=== PATIENT | male | born 1940 | race African-American/Black ===

== ENCOUNTER 2016-05-27 12:07 | Emergency (ER) | payer MEDICARE, MEDICAID ==
[~2016-05-27] VITALS: Ht 170.2 cm; Wt 71.4 kg
[~2016-05-27 12:07] MED LIST: AMLO1CAP6 PO; ASPI-825 PO; DEXT15SY3 PO; FLUC100T PO; LECI12002 PO; MULT-71 PO; OMEG100T PO; PANT40TA25 PO; SAW80CAP2 PO; [UNRECOGNIZED DRUG - OTHER] PO
[2016-05-27 13:52] VITALS: BP 135/70
== END 2016-05-27 13:53 | disposition home or self-care (01) ==
LOC: EMS 12:09
DX: K21.9 Gastro-esophageal reflux disease without esophagitis (principal); H92.02 Otalgia, left ear; I10 Essential (primary) hypertension; Z79.82 Long term (current) use of aspirin
CPT/HCPCS: 99282

== ENCOUNTER → 2017-01-05 | Outpatient (CLI) | payer OTHER, MEDICAID ==
[~2017-01-05] MED LIST changes: -DEXT15SY3 PO; -FLUC100T PO; -LECI12002 PO; -MULT-71 PO; -OMEG100T PO; -PANT40TA25 PO; -SAW80CAP2 PO; -[UNRECOGNIZED DRUG - OTHER] PO
== END | disposition home or self-care (01) ==
LOC: RADPV 08:50
PROVIDERS: ATTEND Internal Medicine Cardiovascular Disease
DX: I08.0 Rheumatic disorders of both mitral and aortic valves (principal)
CPT/HCPCS: 93306

== ENCOUNTER 2017-08-24 05:31 | Emergency (ER) | payer MEDICARE, MEDICAID ==
[~2017-08-24] VITALS: Ht 170.2 cm; Wt 71.4 kg
[2017-08-24] MEDS ORDERED: TRAM50TA4 PO (05:46)
[2017-08-24] MEDS ORDERED: IBUP-2070 PO (05:46)
[2017-08-24] MEDS ORDERED: CYCL10 PO (05:46)
[2017-08-24] MEDS ORDERED: KETOROLAC TROMETHAMINE 30 MG/ML VIAL IM ONE (06:30)
[2017-08-24] MEDS ORDERED: LIDOCAINE HCL 5% TRANSDERMAL PATCH TD ONE (06:30)
[2017-08-24 07:12] VITALS: BP 133/77
== END 2017-08-24 07:19 | disposition home or self-care (01) ==
LOC: EMS 05:31
DX: M54.2 Cervicalgia (principal); M25.512 Pain in left shoulder; K21.9 Gastro-esophageal reflux disease without esophagitis; I10 Essential (primary) hypertension; G89.29 Other chronic pain
CPT/HCPCS: 96372; 99283; J1885

== ENCOUNTER 2018-08-25 07:44 | Emergency (ER) | payer MEDICARE, MEDICAID ==
[~2018-08-25] VITALS: Ht 172.7 cm; Wt 75.0 kg
[~2018-08-25 07:44] MED LIST changes: -ASPI-825 PO; +CYCL10 PO; +IBUP-2070 PO; +TRAM50TA4 PO
[2018-08-25 09:05] LABS: BASOPHILS % (AUTO) 0.3 % (0.0-2.0); EOSINOPHILS % (AUTO) 0.4 % (1.0-6.0); HEMATOCRIT 47.7 % (41-53); MEAN CORPUSCULAR HEMOGLOBIN 32.9 pg (26.0-34.0); MEAN CORPUSCULAR HGB CONC 33.6 G/dL (31.0-37.0); MEAN CORPUSCULAR VOLUME 98 fL (80-100); MONOCYTES # (AUTO) 0.5 K/uL (0.1-1.0); MONOCYTES % (AUTO) 9.4 % (2.0-9.0); NEUTROPHILS # (AUTO) 4.1 K/uL (1.8-7.7); NEUTROPHILS % (AUTO) 71.9 % (40.0-70.0); PLATELET COUNT (AUTO) 181 K/uL (150-450); RED BLOOD CELL COUNT(AUTO) 4.87 MIL/uL (4.50-5.90); RED CELL DISTRIBUTION WIDTH 13.8 % (11.5-14.5)
[2018-08-25 09:05] LABS: APPEARANCE,URINE CLEAR (CLEAR); BILIRUBIN,URINE NEGATIVE (NEGATIVE); GLUCOSE, URINE (UA) NEGATIVE (NEGATIVE); KETONES,URINE NEGATIVE (NEGATIVE); LEUKOCYTE ESTERASE ,URINE NEGATIVE (NEGATIVE); NITRATE,URINE NEGATIVE (NEGATIVE); OCCULT BLOOD,URINE NEGATIVE (NEGATIVE); PH,URINE 7.5 (5.0-8.0); PROTEIN,URINE NEGATIVE (NEGATIVE); UROBILINOGEN,URINE 0.2 mg/dL (<=1.0)
[2018-08-25 09:11] LABS: ANION GAP 7 mmol/L (8-16); CALCIUM, TOTAL 10.2 mg/dL (8.8-10.5); CARBON DIOXIDE 28 mmol/L (22-29); CHLORIDE 104 mmol/L (98-107); CREATININE 1.04 mg/dL (0.60-1.30); GLOMERULAR FILTR. RATE CALC > 60 mL/min (>60); GLUCOSE,RANDOM 95 mg/dL (70-110); POTASSIUM 4.9 mmol/L (3.5-5.1); SODIUM SERUM 139 mmol/L (136-145); UREA NITROGEN, BLOOD 12 mg/dL (7-18)
[2018-08-25 09:16] LABS: ALANINE AMINOTRANSFERASE 29 U/L (12-78); ALBUMIN 4.2 g/dL (3.4-5.0); ALKALINE PHOSPHATASE 84 U/L (46-116); ASPARTATE AMINOTRANSFERASE 17 U/L (15-37); BILIRUBIN,TOTAL 0.9 mg/dL (0.1-1.0); LIPASE 83 U/L (73-393); TOTAL PROTEIN, SERUM 7.4 g/dL (6.4-8.2)
[2018-08-25 09:20] LABS: BACTERIA,URINE None Seen /HPF (None Seen); RBC,URINE None Seen /HPF (0-2); SQUAMOUS EPITHELIAL CELL,UR None Seen /LPF (None Seen); WBC,URINE None Seen /HPF (0-5)
[2018-08-25 09:27] LABS: B-TYPE NATRIURETIC PEPTIDE 27 pg/mL (0-100)
[2018-08-25] MEDS ORDERED: FAMOTIDINE 20 MG TABLET PO ONE (10:30)
[2018-08-25] MEDS ORDERED: ACETAMINOPHEN 500 MG TABLET PO ONE (10:30)
[2018-08-25] MEDS ORDERED: PANTOPRAZOLE SODIUM 40 MG DR TABLET PO ONE (10:30)
[2018-08-25] MEDS ORDERED: MAG HYDROX/AL HYDROX/SIMETH ES 30 ML SUSPENSION UDCUP PO ONE (10:30)
[2018-08-25 13:10] VITALS: BP 126/64
== END 2018-08-25 13:05 | disposition home or self-care (01) ==
LOC: EMS 07:46
DX: R07.89 Other chest pain (principal); I10 Essential (primary) hypertension; K21.9 Gastro-esophageal reflux disease without esophagitis; Z79.899 Other long term (current) drug therapy
CPT/HCPCS: 36415; 71045; 80053; 81001; 83690; 83880; 84484; 85025; 93005; 99285; G0480

== ENCOUNTER 2020-01-13 04:20 | Emergency (ER) | payer MEDICAID, MEDICARE ==
[~2020-01-13] VITALS: Ht 170.2 cm; Wt 69.5 kg
[2020-01-13 05:00] LABS: BASOPHILS % (AUTO) 0.6 % (0.0-2.0); EOSINOPHILS % (AUTO) 0.7 % (1.0-6.0); HEMATOCRIT 48.3 % (41-53); HEMOGLOBIN 16.5 g/dL (13.5-17.5); LYMPHOCYTES # (AUTO) 1.2 K/uL (1.0-4.8); MEAN CORPUSCULAR HEMOGLOBIN 33.4 pg (26.0-34.0); MEAN CORPUSCULAR HGB CONC 34.2 G/dL (31.0-37.0); MEAN CORPUSCULAR VOLUME 98 fL (80-100); MONOCYTES # (AUTO) 0.4 K/uL (0.1-1.0); MONOCYTES % (AUTO) 9.3 % (2.0-9.0); NEUTROPHILS # (AUTO) 3.1 K/uL (1.8-7.7); NEUTROPHILS % (AUTO) 64.4 % (40.0-70.0); PLATELET COUNT (AUTO) 185 K/uL (150-450); RED BLOOD CELL COUNT(AUTO) 4.95 MIL/uL (4.50-5.90); RED CELL DISTRIBUTION WIDTH 13.4 % (11.5-14.5)
[2020-01-13 05:09] LABS: ANION GAP 7 mmol/L (8-16); CALCIUM, TOTAL 9.4 mg/dL (8.8-10.5); CARBON DIOXIDE 32 mmol/L (22-29); CHLORIDE 104 mmol/L (98-107); CREATININE 0.89 mg/dL (0.60-1.30); GLOMERULAR FILTR. RATE CALC > 60 mL/min (>60); GLUCOSE,RANDOM 106 mg/dL (70-110); POTASSIUM 4.5 mmol/L (3.5-5.1); SODIUM SERUM 143 mmol/L (136-145); UREA NITROGEN, BLOOD 10 mg/dL (7-18)
[2020-01-13 05:17] LABS: ALANINE AMINOTRANSFERASE 26 U/L (12-78); ALKALINE PHOSPHATASE 75 U/L (46-116); ASPARTATE AMINOTRANSFERASE 20 U/L (15-37); BILIRUBIN,TOTAL 0.6 mg/dL (0.1-1.0); TOTAL PROTEIN, SERUM 7.9 g/dL (6.4-8.2)
[2020-01-13] MEDS ORDERED: PB/HYOSCY/ATR/SCOP/LIDO/MAALOX 55 ML BOTTLE PO ONE (06:15)
[2020-01-13] MEDS ORDERED: FAMOTIDINE 10 MG/ML 2 ML VIAL IVP ONE (06:15)
[2020-01-13 09:09] VITALS: BP 121/74
== END 2020-01-13 09:10 | disposition home or self-care (01) ==
LOC: EMS 04:21
DX: R07.89 Other chest pain (principal); R12 Heartburn; R20.8 Other disturbances of skin sensation; K21.9 Gastro-esophageal reflux disease without esophagitis; I10 Essential (primary) hypertension
CPT/HCPCS: 36415; 71045; 80053; 84484; 85025; 93005; 96374; 99285; J3490

== ENCOUNTER → 2020-07-17 | Outpatient (CLI) | payer MEDICARE ==
[~2020-07-17] MED LIST changes: -CYCL10 PO; -IBUP-2070 PO; -TRAM50TA4 PO
== END | disposition home or self-care (01) ==
LOC: RADPV 09:11
PROVIDERS: ATTEND Internal Medicine Cardiovascular Disease
DX: I35.1 Nonrheumatic aortic (valve) insufficiency (principal)
CPT/HCPCS: 93306

== ENCOUNTER 2020-09-06 01:25 | Emergency (ER) | payer MEDICARE ==
[~2020-09-06] VITALS: Ht 170.2 cm; Wt 79.1 kg
[2020-09-06 01:45] LABS: BASOPHILS % (AUTO) 0.8 % (0.0-2.0); HEMATOCRIT 46.3 % (41-53); HEMOGLOBIN 15.7 g/dL (13.5-17.5); LYMPHOCYTES # (AUTO) 1.6 K/uL (1.0-4.8); LYMPHOCYTES % (AUTO) 40.4 % (22.0-44.0); MEAN CORPUSCULAR HEMOGLOBIN 32.6 pg (26.0-34.0); MEAN CORPUSCULAR VOLUME 96 fL (80-100); MONOCYTES # (AUTO) 0.4 K/uL (0.1-1.0); MONOCYTES % (AUTO) 9.8 % (2.0-9.0); NEUTROPHILS # (AUTO) 1.9 K/uL (1.8-7.7); PLATELET COUNT (AUTO) 162 K/uL (150-450); RED BLOOD CELL COUNT(AUTO) 4.83 MIL/uL (4.50-5.90); RED CELL DISTRIBUTION WIDTH 13.4 % (11.5-14.5)
[2020-09-06 01:53] LABS: ANION GAP 8 mmol/L (8-16); CALCIUM, TOTAL 9.1 mg/dL (8.8-10.5); CARBON DIOXIDE 27 mmol/L (22-29); CHLORIDE 105 mmol/L (98-107); CREATININE 0.98 mg/dL (0.60-1.30); GLUCOSE,RANDOM 104 mg/dL (70-110); POTASSIUM 4.4 mmol/L (3.5-5.1); SODIUM SERUM 140 mmol/L (136-145); UREA NITROGEN, BLOOD 12 mg/dL (7-18)
[2020-09-06 02:01] LABS: PROTHROMBIN TIME 10.8 SEC (9.4-11.6)
[2020-09-06 02:04] LABS: GLOMERULAR FILTR. RATE CALC > 60 mL/min (>60)
[2020-09-06 02:07] LABS: B-TYPE NATRIURETIC PEPTIDE 22 pg/mL (0-100)
[2020-09-06 02:18] LABS: ALANINE AMINOTRANSFERASE 31 U/L (12-78); ALKALINE PHOSPHATASE 96 U/L (46-116); ASPARTATE AMINOTRANSFERASE 21 U/L (15-37); BILIRUBIN,TOTAL 0.6 mg/dL (0.1-1.0); CREATINE KINASE, TOTAL ONLY 121 U/L (39-308); TOTAL PROTEIN, SERUM 7.5 g/dL (6.4-8.2)
[2020-09-06 03:34] LABS: FREE T4 (FREE THYROXINE) 0.99 ng/dL (0.76-1.46); THYROID STIMULATING HORMONE 1.08 uIU/mL (0.36-3.74)
[2020-09-06 04:00] VITALS: BP 133/66
== END 2020-09-06 04:58 | disposition home or self-care (01) ==
LOC: EMS 01:28
DX: R07.89 Other chest pain (principal); R00.2 Palpitations
CPT/HCPCS: 71045; 80053; 82550; 83880; 84439; 84443; 84484; 85025; 85610; 85730; 93005; 99285; 36415-L1; 36415-TC

== ENCOUNTER 2021-04-10 23:57 | Inpatient (IN) | payer MEDICARE ==
[~2021-04-10] VITALS: Ht 170.2 cm; Wt 69.9 kg
[2021-04-11 00:56] LABS: BASOPHILS % (AUTO) 0.5 % (0.0-2.0); EOSINOPHILS % (AUTO) 1.3 % (1.0-6.0); HEMATOCRIT 47.1 % (41-53); HEMOGLOBIN 16.1 g/dL (13.5-17.5); LYMPHOCYTES # (AUTO) 1.4 K/uL (1.0-4.8); LYMPHOCYTES % (AUTO) 35.5 % (22.0-44.0); MEAN CORPUSCULAR HEMOGLOBIN 32.7 pg (26.0-34.0); MEAN CORPUSCULAR HGB CONC 34.2 G/dL (31.0-37.0); MEAN CORPUSCULAR VOLUME 95 fL (80-100); MONOCYTES # (AUTO) 0.4 K/uL (0.1-1.0); MONOCYTES % (AUTO) 10.9 % (2.0-9.0); NEUTROPHILS # (AUTO) 2.1 K/uL (1.8-7.7); NEUTROPHILS % (AUTO) 51.8 % (40.0-70.0); PLATELET COUNT (AUTO) 165 K/uL (150-450); RED BLOOD CELL COUNT(AUTO) 4.94 MIL/uL (4.50-5.90); RED CELL DISTRIBUTION WIDTH 13.3 % (11.5-14.5)
[2021-04-11 01:03] LABS: ANION GAP 8 mmol/L (8-16); CALCIUM, TOTAL 9.4 mg/dL (8.8-10.5); CARBON DIOXIDE 27 mmol/L (22-29); CHLORIDE 104 mmol/L (98-107); CREATININE 0.85 mg/dL (0.60-1.30); GLUCOSE,RANDOM 108 mg/dL (70-110); POTASSIUM 4.2 mmol/L (3.5-5.1); SODIUM SERUM 139 mmol/L (136-145); UREA NITROGEN, BLOOD 8 mg/dL (7-18)
[2021-04-11 01:05] LABS: COVID AG,FIA SOURCE NASOPHARYNGEAL
[2021-04-11 01:08] LABS: GLOMERULAR FILTR. RATE CALC > 60 mL/min (>60)
[2021-04-11 01:19] LABS: B-TYPE NATRIURETIC PEPTIDE 143 pg/mL (0-100)
[2021-04-11 01:27] LABS: ALANINE AMINOTRANSFERASE 35 U/L (12-78); ALBUMIN 4.2 g/dL (3.4-5.0); ALKALINE PHOSPHATASE 86 U/L (46-116); ASPARTATE AMINOTRANSFERASE 30 U/L (15-37); BILIRUBIN,TOTAL 0.8 mg/dL (0.1-1.0); CREATINE KINASE, TOTAL ONLY 373 U/L (39-308); PHOSPHORUS 3.7 mg/dL (2.5-4.9); TOTAL PROTEIN, SERUM 7.8 g/dL (6.4-8.2)
[2021-04-11 02:01] LABS: APPEARANCE,URINE CLEAR (CLEAR); BILIRUBIN,URINE NEGATIVE (NEGATIVE); GLUCOSE, URINE (UA) NEGATIVE (NEGATIVE); KETONES,URINE NEGATIVE (NEGATIVE); LEUKOCYTE ESTERASE ,URINE NEGATIVE (NEGATIVE); NITRATE,URINE NEGATIVE (NEGATIVE); OCCULT BLOOD,URINE NEGATIVE (NEGATIVE); PROTEIN,URINE NEGATIVE (NEGATIVE); UROBILINOGEN,URINE 0.2 mg/dL (<=1.0)
[2021-04-11] MEDS ORDERED: ONDANSETRON HCL 4 MG/2 ML VIAL IVP PRN (04:30)
[2021-04-11] MEDS ORDERED: APIX5TAB PO (05:41)
[2021-04-11] MEDS ORDERED: ATROPINE SULFATE 0.1 MG/ML 10 ML SYRINGE IVP PRN (05:45)
[2021-04-11] MEDS: FUROSEMIDE 20 MG/2 ML VIAL IVP SCH (06:22)
[2021-04-11 06:29] VITALS: BP 143/73
[2021-04-11] MEDS ORDERED: HEPARIN SODIUM,PORCINE 5,000 UNITS/ML VIAL SQ SCH (08:00)
[2021-04-11 08:10] VITALS: BP 124/64
[2021-04-11] MEDS: APIXABAN 5 MG TABLET PO SCH ×2 (08:32→20:31)
[2021-04-11] MEDS: ASPIRIN 81 MG CHEWABLE TABLET PO SCH (08:32)
[2021-04-11 11:35] VITALS: BP 108/63
[2021-04-11] MEDS: ATORVASTATIN CALCIUM 20 MG TABLET PO SCH (12:05)
[2021-04-11 16:12] VITALS: BP 116/71
[2021-04-11 22:05] VITALS: BP 131/60
[2021-04-12 00:53] VITALS: BP 117/64
[2021-04-12 05:08] VITALS: BP 118/63
[2021-04-12 06:15] LABS: BASOPHILS % (AUTO) 0.3 % (0.0-2.0); EOSINOPHILS % (AUTO) 1.3 % (1.0-6.0); HEMATOCRIT 46.7 % (41-53); HEMOGLOBIN 15.7 g/dL (13.5-17.5); LYMPHOCYTES # (AUTO) 1.5 K/uL (1.0-4.8); LYMPHOCYTES % (AUTO) 34.1 % (22.0-44.0); MEAN CORPUSCULAR HEMOGLOBIN 32.4 pg (26.0-34.0); MEAN CORPUSCULAR HGB CONC 33.6 G/dL (31.0-37.0); MEAN CORPUSCULAR VOLUME 96 fL (80-100); MONOCYTES # (AUTO) 0.5 K/uL (0.1-1.0); NEUTROPHILS # (AUTO) 2.2 K/uL (1.8-7.7); NEUTROPHILS % (AUTO) 52.3 % (40.0-70.0); PLATELET COUNT (AUTO) 174 K/uL (150-450); RED BLOOD CELL COUNT(AUTO) 4.85 MIL/uL (4.50-5.90); RED CELL DISTRIBUTION WIDTH 13.2 % (11.5-14.5)
[2021-04-12 06:39] LABS: ALANINE AMINOTRANSFERASE 31 U/L (12-78); ALBUMIN 3.3 g/dL (3.4-5.0); ALKALINE PHOSPHATASE 64 U/L (46-116); ANION GAP 5 mmol/L (8-16); ASPARTATE AMINOTRANSFERASE 24 U/L (15-37); BILIRUBIN,TOTAL 0.9 mg/dL (0.1-1.0); CALCIUM, TOTAL 9.2 mg/dL (8.8-10.5); CARBON DIOXIDE 30 mmol/L (22-29); CHLORIDE 105 mmol/L (98-107); CREATININE 0.87 mg/dL (0.60-1.30); GLUCOSE,RANDOM 91 mg/dL (70-110); POTASSIUM 4.1 mmol/L (3.5-5.1); SODIUM SERUM 140 mmol/L (136-145); TOTAL PROTEIN, SERUM 6.2 g/dL (6.4-8.2); UREA NITROGEN, BLOOD 11 mg/dL (7-18)
[2021-04-12 06:44] LABS: GLOMERULAR FILTR. RATE CALC > 60 mL/min (>60)
[2021-04-12] MEDS: APIXABAN 5 MG TABLET PO SCH (08:33)
[2021-04-12] MEDS: ASPIRIN 81 MG CHEWABLE TABLET PO SCH (08:33)
[2021-04-12] MEDS: ATORVASTATIN CALCIUM 20 MG TABLET PO SCH (08:33)
[2021-04-12] MEDS: FUROSEMIDE 20 MG/2 ML VIAL IVP SCH (08:33)
[2021-04-12 09:48] VITALS: BP 131/53
[2021-04-12 21:01] VITALS: BP 133/72
[2021-04-13 01:44] VITALS: BP 119/65
[2021-04-13 04:00] VITALS: BP 131/55
[2021-04-13 07:29] LABS: BASOPHILS % (AUTO) 1.1 % (0.0-2.0); EOSINOPHILS % (AUTO) 1.2 % (1.0-6.0); HEMATOCRIT 48.3 % (41-53); HEMOGLOBIN 16.7 g/dL (13.5-17.5); LYMPHOCYTES # (AUTO) 1.2 K/uL (1.0-4.8); LYMPHOCYTES % (AUTO) 29.6 % (22.0-44.0); MEAN CORPUSCULAR HEMOGLOBIN 32.9 pg (26.0-34.0); MEAN CORPUSCULAR HGB CONC 34.5 G/dL (31.0-37.0); MEAN CORPUSCULAR VOLUME 95 fL (80-100); MONOCYTES # (AUTO) 0.4 K/uL (0.1-1.0); NEUTROPHILS # (AUTO) 2.4 K/uL (1.8-7.7); NEUTROPHILS % (AUTO) 58.1 % (40.0-70.0); PLATELET COUNT (AUTO) 167 K/uL (150-450); RED BLOOD CELL COUNT(AUTO) 5.06 MIL/uL (4.50-5.90); RED CELL DISTRIBUTION WIDTH 13.3 % (11.5-14.5)
[2021-04-13 07:54] VITALS: BP 153/82
[2021-04-13 08:14] LABS: ALANINE AMINOTRANSFERASE 39 U/L (12-78); ALBUMIN 3.5 g/dL (3.4-5.0); ALKALINE PHOSPHATASE 74 U/L (46-116); ANION GAP 11 mmol/L (8-16); ASPARTATE AMINOTRANSFERASE 32 U/L (15-37); BILIRUBIN,TOTAL 0.8 mg/dL (0.1-1.0); CALCIUM, TOTAL 9.1 mg/dL (8.8-10.5); CARBON DIOXIDE 28 mmol/L (22-29); CHLORIDE 103 mmol/L (98-107); CREATININE 0.91 mg/dL (0.60-1.30); GLOMERULAR FILTR. RATE CALC > 60 mL/min (>60); GLUCOSE,RANDOM 100 mg/dL (70-110); POTASSIUM 4.1 mmol/L (3.5-5.1); SODIUM SERUM 142 mmol/L (136-145); TOTAL PROTEIN, SERUM 6.8 g/dL (6.4-8.2); UREA NITROGEN, BLOOD 13 mg/dL (7-18)
[2021-04-13] MEDS: ATORVASTATIN CALCIUM 20 MG TABLET PO SCH (08:33)
[2021-04-13] MEDS: FUROSEMIDE 20 MG/2 ML VIAL IVP SCH (08:33)
[2021-04-13] MEDS: ASPIRIN 81 MG CHEWABLE TABLET PO SCH (08:33)
[2021-04-13 11:47] VITALS: BP 142/68
[2021-04-13 15:17] VITALS: BP 127/79
[2021-04-13 20:07] VITALS: BP 130/56
[2021-04-13] MEDS: ACETAMINOPHEN 325 MG TABLET PO PRN (20:26)
[2021-04-14] VITALS (18 sets, daily range): BP systolic 100–180; BP diastolic 45–94
[2021-04-14] MEDS: ATORVASTATIN CALCIUM 20 MG TABLET PO SCH (07:49)
[2021-04-14] MEDS: ASPIRIN 81 MG CHEWABLE TABLET PO SCH (07:52)
[2021-04-14] MEDS: FUROSEMIDE 20 MG/2 ML VIAL IVP SCH (08:27)
[2021-04-14] MEDS ORDERED: LIDOCAINE/PF 1% 30 ML VIAL ONE (08:27)
[2021-04-14] MEDS ORDERED: SODIUM BICARBONATE 50 MEQ/50 ML VIAL ONE (08:27)
[2021-04-14] MEDS ORDERED: FentaNYL CITRATE PF 100 MCG/2 ML VIAL ONE (09:05)
[2021-04-14] MEDS ORDERED: MIDAZOLAM HCL 2 MG/2 ML VIAL ONE (09:06)
[2021-04-14] MEDS ORDERED: IOHEXOL 300 MG/ML 50 ML VIAL ONE (09:06)
[2021-04-14] MEDS ORDERED: SODIUM CHLORIDE 0.9% 500 ML IV ONE (09:45)
[2021-04-14] MEDS ORDERED: IOHEXOL 300 MG/ML 50 ML VIAL IVP ONE (09:45)
[2021-04-14] MEDS ORDERED: LIDOCAINE 1% 30 ML/SOD BICARB 8.4% 4 ML SQ ONE (09:45)
[2021-04-14] MEDS: CeFAZolin 1 GM/DEXTROSE 50 ML IV SCH ×2 (15:47→20:51)
[2021-04-14] MEDS: APIXABAN 5 MG TABLET PO SCH (20:50)
[2021-04-14] MEDS: ACETAMINOPHEN 325 MG TABLET PO PRN (20:50)
[2021-04-15 00:20] VITALS: BP 131/70
[2021-04-15] MEDS: CeFAZolin 1 GM/DEXTROSE 50 ML IV SCH (03:37)
[2021-04-15 04:15] VITALS: BP 122/69
[2021-04-15 07:27] VITALS: BP 139/66
[2021-04-15 07:53] LABS: CHOL/HDL RATIO 2.3 (4.2-7.3); MAGNESIUM 2.4 mg/dL (1.80-2.40); THYROID STIMULATING HORMONE 1.02 uIU/mL (0.36-3.74)
[2021-04-15] MEDS: FUROSEMIDE 20 MG/2 ML VIAL IVP SCH (09:41)
[2021-04-15] MEDS: ATORVASTATIN CALCIUM 20 MG TABLET PO SCH (09:41)
[2021-04-15] MEDS: APIXABAN 5 MG TABLET PO SCH (09:41)
[2021-04-15] MEDS: ASPIRIN 81 MG CHEWABLE TABLET PO SCH (09:42)
[2021-04-15 11:27] VITALS: BP 145/66
[2021-04-15] MEDS ORDERED: ATOR20TA86 PO (11:45)
[2021-04-15] MEDS ORDERED: FURO-152 PO (11:45)
== END 2021-04-15 12:35 | disposition home or self-care (01) | DRG 242 ==
LOC: EMS 04-11 → 5S 04-11 05:10
PROVIDERS: ADMIT Internal Medicine; ATTEND Internal Medicine
PROC: 0JH604Z Insertion of Pacemaker, Single Chamber into Chest Subcutaneous Tissue and Fascia, Open Approach (ICD-10-PCS; principal; 2021-04-14)
PROC: 02HK3JZ Insertion of Pacemaker Lead into Right Ventricle, Percutaneous Approach (ICD-10-PCS; 2021-04-14)
DX: I48.19 Other persistent atrial fibrillation (principal); I50.31 Acute diastolic (congestive) heart failure; I35.1 Nonrheumatic aortic (valve) insufficiency; E78.5 Hyperlipidemia, unspecified; I11.0 Hypertensive heart disease with heart failure; I25.10 Atherosclerotic heart disease of native coronary artery without angina pectoris; Z20.822 Contact with and (suspected) exposure to COVID-19; K21.9 Gastro-esophageal reflux disease without esophagitis; M19.90 Unspecified osteoarthritis, unspecified site; E55.9 Vitamin D deficiency, unspecified; Z79.01 Long term (current) use of anticoagulants; Z79.82 Long term (current) use of aspirin; Z95.0 Presence of cardiac pacemaker
CPT/HCPCS: 33207; 36005; 71045; 71046; 76000; 80053; 80061; 81003; 82550; 83036; 83735; 83880; 84100; 84443; 84484; 85025; 85610; 85730; 93005; 93306; 93971; 97162; 99285; G0378; J0461; J0690; J1940; J2250; J3010; J3490; Q9967; 36415-L1; 36415-TC

== ENCOUNTER → 2022-04-21 | Outpatient (CLI) | payer MEDICARE ==
[~2022-04-21] MED LIST changes: +APIX5TAB PO; +ATOR20TA86 PO; +FURO-152 PO; +REGADENOSON 0.4 MG/5 ML PF SYRINGE IVP ONE; +SESTAMIBI TC99M/UD ISOTOPE 1 EA INJ INJ ONE
[2022-04-21 09:32] VITALS: BP 127/72
[2022-04-21 09:40] VITALS: BP 136/76
== END | disposition home or self-care (01) ==
LOC: CARDMN 07:50
PROVIDERS: ATTEND Internal Medicine Cardiovascular Disease
DX: I08.8 Other rheumatic multiple valve diseases (principal)
CPT/HCPCS: 78452; 93306; A9500

== ENCOUNTER 2022-07-06 03:00 | Emergency (ER) | payer MEDICARE ==
[~2022-07-06] VITALS: Ht 170.2 cm; Wt 70.0 kg
[~2022-07-06 03:00] MED LIST changes: -REGADENOSON 0.4 MG/5 ML PF SYRINGE IVP ONE; -SESTAMIBI TC99M/UD ISOTOPE 1 EA INJ INJ ONE
[2022-07-06 04:38] VITALS: BP 156/71
[2022-07-06] MEDS ORDERED: HYDROCODONE/ACETAMINOPHEN 5-325 MG TABLET PO ONE (04:45)
[2022-07-06] MEDS ORDERED: LIDOCAINE 5% TRANSDERMAL PATCH TD ONE (04:45)
[2022-07-06] MEDS ORDERED: BUPIVACAINE HCL/PF 0.25% 10 ML VIAL IM ONE (05:00)
[2022-07-06] MEDS ORDERED: TRIAMCINOLONE ACETONIDE 40 MG/ML VIAL IM ONE (05:00)
[2022-07-06] MEDS ORDERED: LIDOCAINE 1% 10 ML VIAL IM ONE (05:00)
== END 2022-07-06 05:21 | disposition home or self-care (01) ==
LOC: EMS 03:01
DX: M79.18 Myalgia, other site (principal); I48.91 Unspecified atrial fibrillation; I10 Essential (primary) hypertension; E78.00 Pure hypercholesterolemia, unspecified; K21.9 Gastro-esophageal reflux disease without esophagitis; J44.9 Chronic obstructive pulmonary disease, unspecified; I63.9 Cerebral infarction, unspecified; K80.20 Calculus of gallbladder without cholecystitis without obstruction; I51.9 Heart disease, unspecified
CPT/HCPCS: 99284; 20550; 96372; J3490 ×2; J3301